=== PATIENT | male | born 1950 | race Caucasian/White ===

== ENCOUNTER 2018-07-07 09:20 | Inpatient (IN) ==
--- NOTE | 2018-06-23 14:26 | PAT Medication Instructions ---
Medication Instructions Date of Service June 23, 2018 Home Medications atenolol 12.5 mg PO QAM lactobacillus combination no.4 3,000 mmu cells PO QAM multivitamin 1 tab PO QAM naproxen 500 mg PO BID PRN omeprazole magnesium [Prilosec OTC] 20 mg PO QAM rosuvastatin [Crestor] 10 mg PO QAM ASK your surgeon for instructions naproxen 500 mg PO BID PRN DO NOT take the morning of surgery lactobacillus combination no.4 3,000 mmu cells PO QAM multivitamin 1 tab PO QAM Take morning of surgery With a small sip of water, OTHERWISE NOTHING TO EAT OR DRINK AFTER MIDNIGHT: atenolol 12.5 mg PO QAM omeprazole magnesium [Prilosec OTC] 20 mg PO QAM rosuvastatin [Crestor] 10 mg PO QAM Other Notes If you have any questions please call us at [phone] or [phone] or [phone] or [phone]
--- NOTE | 2018-06-24 10:47 | Anesthesiology Consultation ---
Date of Service June 24, 2018 Assessment & Plan (1) Encounter for pre-operative examination: - PCP: 06/20/18: "Blood pressure well controlled. "Medically acceptable risk to proceed with planned robotic prostatectomy." Chart Review Chart Review: Acceptable Risk for Surgery and Patient seen in Pre Admission Testing Teaching & Discussion Pre-Anesthesia Teaching/Discussion Notes: Instructed NPO after midnight before surgery,except medications with 15 cc of water. Medication instructions provided according to the PAT guidelines. History Surgery Operation Date: 07/07/18 07:30 Proposed Procedures p Laparoscopic Robot Assisted Radical Retropubic Prostatectomy, Possible Open, Possible Pelvic Lymph Node Dissection, Possible Suprapubic Tube Placement - Xu Dixon MD Height/Weight Height: 5 ft 10 in Weight: 98.7 kg Allergies Allergy/AdvReac Type Severity Reaction Status Date / Time simvastatin [From Zocor] Allergy Muscle Pain Verified 06/21/18 13:14 Medications Home Medications Medication Instructions Recorded Confirmed Last Taken atenolol 12.5 mg PO QAM 06/21/18 06/21/18 Unknown lactobacillus combination no.4 3,000 mmu cells PO QAM 06/21/18 06/21/18 Unknown [Probiotic] multivitamin 1 tab PO QAM 06/21/18 06/21/18 Unknown naproxen 500 mg PO BID PRN 06/21/18 06/21/18 Unknown omeprazole magnesium [Prilosec OTC] 20 mg PO QAM 06/21/18 06/21/18 Unknown rosuvastatin [Crestor] 10 mg PO QAM 06/21/18 06/21/18 Unknown Past Medical History Medical History BPH (benign prostatic hyperplasia) GERD (gastroesophageal reflux disease) CONTROLLED Hyperlipidemia PSVT (paroxysmal supraventricular tachycardia) EPISODE 2000; NO ISSUES SINCE BETA YOSEF ADDITION Past Family History Family History Brother Family history of diabetes mellitus Mother Family history of diabetes mellitus Uncle Family history of diabetes mellitus Past Surgical History Surgical History History of colonoscopy Hx of appendectomy Hx of hemorrhoidectomy X2 Past Anesthesia History No Hx of Anesthesia Complications and No Family Hx of Anesthesia Complications History of PONV No Motion Sickness Screening History of Motion Sickness: No Social History Smoking Status: Never smoker Do You Dip or Chew Tobacco: No Hx Alcohol Use: No Hx Substance Use: No Exercise / Class Metabolic Activity II 4-5 Yardwork/Stairs/Walk up hill Review of Systems Patient denies chest pain, shortness of breath, dyspnea on exertion, cough, wheezing, palpitations. Physical Exam Vital Signs VITALS BP 122/77 P 67 TEMP 97.4 SP02 97%RA RESP 16 PHYSICAL Full neck and c-spine range of motion. Full TMJ range of motion. TMD 4 finger breaths Mallampati Score 1 Dentition: intact, implant on upper front Lungs: clear throughout to auscultation Cardiac: regular rate and rhythm, no murmurs noted Spine: normal Carotid arteries: negative bruit Extremities: no edema Testing Electrocardiogram Date: 06/20/18 Findings: + NSR @ (62) Chest X-Ray Date: 06/20/18 Findings: + NAD Laboratory Results Blood Type A Positive 06/24/18 11:01 Antibody Screen NEGATIVE 06/24/18 11:01 Urine Color Yellow 06/24/18 Unknown Urine Appearance Clear (Clear) 06/24/18 Unknown Urine pH 5.0 (4.5-7.5) 06/24/18 Unknown Ur Specific [place] 1.023 (1.000-1.030) 06/24/18 Unknown Urine Protein Negative (Negative) 06/24/18 Unknown Urine Glucose (UA) Negative (Negative) 06/24/18 Unknown Urine Ketones Negative (Negative) 06/24/18 Unknown Urine Nitrite Negative (Negative) 06/24/18 Unknown Ur Leukocyte Esterase Negative (Negative) 06/24/18 Unknown 06/20/18 WBC 6.1 H/H 13.9/41.1 PLATELETS 118 SODIUM 140 POTASSIUM 4.2 CHLORIDE 108 CO2 24 BUN 26 CREATININE 1.0 GLUCOSE 88
[2018-06-24 11:46] LABS: Appearance Urine Clear (Clear); Bilirubin Urine Negative (Negative); Blood Urine Negative (Negative); Color Urine Yellow; Glucose Urine UA Negative (Negative); Ketones Urine Negative (Negative); Leukocyte Esterase Urine Negative (Negative); Nitrite Urine Negative (Negative); Protein Urine Negative (Negative); Specific Gravity Urine 1.023 (1.000-1.030); Urobilinogen Urine Negative (Negative)
[~2018-07-07 09:20] MED LIST: ACETAMINOPHEN 1000 MG/100 ML IV IV SCH; CEFAZOLIN 2000MG 2,000 MG/15 ML SYR IV SCH; HEPARIN SOD 5,000 UNIT/0.5 ML VIAL SQ SCH; LR 15ML/HR IV SCH; LR 500ML BOLUS IV SCH
--- OUTSIDE RECORDS SUMMARY | 2018-07-07 09:24 | External Medical Summary | Continuity of Care Document ---
:1950 Author Name Lester León, Provider Address Unavailable Unavailable , Care Team Providers Name Role Phone Xu Dixon M.D., I. Unavailable [email or web address] Problems High cholesterol (272.0) (E78.00) Prostate cancer (185) (C61) Elevated PSA (790.93) (R97.20) Allergies and Adverse Reactions No Known Drug Allergies (Allergy) Medications Atenolol TABS Refills: 0 Crestor TABS Refills: 0 PriLOSEC OTC TBEC Refills: 0 Aspir-Low 81 MG Oral Tablet Delayed Release Refills: 0 Probiotic CAPS Refills: 0 Multivitamins CAPS Refills: 0 Sulfamethoxazole-Trimethoprim 800-160 MG Oral Tablet; TAKE 1 TABLET TWICE DAILY STARTING DAY PRIOR TO THE BIOPSY Mau Dixon I. Start: 08-Feb-2018 Quantity: 6 Refills: 0 Procedures History of Appendectomy Status: Complete d History of Hemorrhoidectomy Status: Comp leted Immunizations Immunizations not documented Family History Mother Family history of diabetes mellitus (V18.0) (Z83.3) Status: Active Family history of malignant neoplasm of brain (V16.8) (Z80.8 ) Status: Active Brother Family history of diabetes mellitus (V18.0) (Z83.3) Status: Active natural daughter Family history of kidney stones (V18.69) (Z84.1) Status: Act carmela Social History - Smoking Status Never smoker Plan of Treatment Planned Encounters Appointment; Xu Dixon M.D. Start: 27-Jul-2018 13:45 R equest Planned Observations Planned Goals not documented Results Urine Culture 24-Jun-2018 0:00 URINE CULTURE CATH ORDERED P ROCEDURE : Urine Culture; Speciment : Urine,Clean Catch Urine Culture : No growth - less than 1,000 colonies/mL. Encounters Appointment; Xu Dixon M.D. 07-Jul-2018 8:00 Encounter Diagnosis: Problem not documented Appointment; Velma Branch CRNP 07-Jul-2018 8:00 Encounter Diagnosis: Problem not documented Appointment; Xu Dixon M.D. 15-Jun-2018 11:45 Encounter Diagnosis: Problem not documented Appointment; Xu Dixon M.D. 18-Apr-2018 11:10 Encounter Diagnosis: Problem not documented Appointment; Xu Dixon M.D. 06-Apr-2018 12:45 Encounter Diagnosis: Problem not documented Appointment; Urology, US probe only 06-Apr-2018 12:45 Encounter Diagnosis: Problem not documented Appointment; Urology, Room 8 06-Apr-2018 12:40 Encounter Diagnosis: Problem not documented Appointment; Xu Dixon M.D. 08-Feb-2018 10:50 Encounter Diagnosis: Problem not documented Appointment; Xu Dixon M.D. 27-Jul-2018 13:45 Encounter Diagnosis: Problem not documented
--- NOTE | 2018-07-07 11:01 | History & Physical Bridge Note ---
Date of Service July 07, 2018 History & Physical Bridge Note I have examined the patient, reviewed the History & Physical and in the interval since the performance of the History & Physical I have noted the following changes of clinical significance: no changes noted
[2018-07-07] MEDS ORDERED: ePHEDrine sulfate 50 MG/ML AMP IV PRN (11:21)
[2018-07-07] MEDS ORDERED: fentaNYL citrate 100 MCG/2 ML VIAL IV PRN (11:21)
[2018-07-07] MEDS ORDERED: PROMETHAZINE HCL 12.5 MG in SODIUM CHLORIDE 0.9% 50 ML IV PRN (11:21)
[2018-07-07] MEDS ORDERED: ONDANSETRON INJ 2 MG/ML 2 ML VIAL IV PRN ×2 (11:21→18:36)
[2018-07-07] MEDS ORDERED: ATROPINE SULFATE 0.1 MG/ML 10ML SYR IV PRN (11:21)
[2018-07-07] MEDS ORDERED: HYDROmorphone INJ 2 MG/ML SYR/VIAL IV PRN (11:21)
[2018-07-07] MEDS ORDERED: DEXAMETHASONE SOD INJ 4 MG/ML VIAL IV PRN (11:21)
[2018-07-07] MEDS ORDERED: LIDOCAINE HCL 2% 2 ML VIAL/AMP(20MG/ML) INFIL ONE (11:50)
[2018-07-07] MEDS ORDERED: GLYCOPYRROLATE 0.2 MG/ML VIAL ONE (11:50)
[2018-07-07] MEDS ORDERED: fentaNYL citrate 100 MCG/2 ML VIAL ONE ×2 (11:50)
[2018-07-07] MEDS ORDERED: ePHEDrine sulfate 50 MG/ML AMP ONE (11:50)
[2018-07-07] MEDS ORDERED: PROPOFOL IV EMULSION 10 MG/ML 20 ML VIAL IV ONE (11:50)
[2018-07-07] MEDS ORDERED: NEOSTIGMINE METHYLSULFATE 5 MG/5 ML SYR ONE (11:50)
[2018-07-07] MEDS ORDERED: PHENYLEPHRINE HCL 10 MG/ML VIAL ONE (11:50)
[2018-07-07] MEDS ORDERED: DEXAMETHASONE SOD INJ 4 MG/ML VIAL ONE (11:50)
[2018-07-07] MEDS ORDERED: MIDAZOLAM HCL 1 MG/ML 2ML VIAL ONE (11:50)
[2018-07-07] MEDS ORDERED: ONDANSETRON INJ 2 MG/ML 2 ML VIAL ONE (11:50)
[2018-07-07] MEDS ORDERED: SUCCINYLCHOLINE CHLORIDE 20 MG/ML 10 ML VIAL ONE (11:50)
[2018-07-07] MEDS ORDERED: BUPIVACAINE 0.5 % 5 MG/1 ML MPF 30ML VIAL ONE (13:22)
--- NOTE | 2018-07-07 13:57 | Operative Report ---
Post Operative Report Pre & Post Diagnosis Operation Date: 07/07/18 11:10 Preoperative diagnosis: Clinical T1c Gregg 3+3 prostate cancer. Postoperative diagnosis: Same. Procedure: Robot-assisted laparoscopic radical retropubic prostatectomy with bilateral nerve sparing and suprapubic tube placement. Surgeon: Dr. Xu Dixon. Cell Maker: PORFIRIO Ferro. Anesthesia: General anesthesia with endotracheal intubation plus local port sites. Drains left in place: 18 Afghan silicone urethral Maldonado with 10 cc of sterile water in the balloon, 16 Afghan silicone suprapubic tube with 10 cc of sterile water in the balloon, #10 SANDY drain in the left lower quadrant. Specimen sent to pathology: Prostate plus seminal vesicles, periprosthetic fat. Estimated blood loss: 200 cc. Findings: Watertight anastomosis and bilateral nerve sparing dissection undertaken. Excellent hemostasis in the pelvis and no evidence of rectal injury. Procedure Operation Date: 07/07/18 11:10 Brief history: Patient is a 68-year-old male with a new diagnosis of Gregg 3+3 adenocarcinoma the prostate on office biopsy for an elevated PSA of 8.7. After discussion of risks and benefits of various forms of intervention is decided upon robotic prostatectomy manage his disease. Seen his preoperative staging lymph node dissection is not planned. Patient is decided he wishes to proceed with suprapubic tube placement today as discussed with him and his preoperatively. Intravenous Ancef is provided for antibiotic coverage as well as Tylenol for postoperative analgesia. SCDs used for DVT prophylaxis as well as subcutaneous heparin. Please see H&P for further details. Procedure: Patient was properly identified and brought into the operative suite after identification of appropriate consent of the chart. General anesthesia with endotracheal ablation was initiated and patient was prepped and draped in standard fashion for this procedure. Full timeout procedure was followed. All port sites were anesthetized with local prior to incision. A transverse suprapubic incision was made brought down through the subcutaneous tissues with a 0 degree laparoscope and a visual obturator until the abdomen was entered. And was insufflated to 15 mmHg and surveyed. Ports were placed for a fourth arm robotic template including 2 left-sided 7 mm ports, a right-sided 7 mm robotic port and a 12 and 5 mm assistant hvac mechanic port. Patient was placed in Trendelenburg and robot was brought in and docked. 0 degree lens was used to drop the bladder down to the level of the pubic bone and the prostate was defatted. Tissue that was removed was sent as periprostatic fat. Patient was noted to have an accessory cavernosal artery on the right-hand side this was preserved over the course of his dissection and noted to be intact at the end of the case. Endopelvic fascia was skeletonized and then sharply entered on both sides. Patient was noted to have sustained oozing from small blood vessels over the course of most of the dissection. Lateral dissection was taken down down to the apex of the prostate and the dorsal venous complex was skeletonized. 0 Vicryl suture on a CT1 needle was used to control this in a [id number] fashion. Care was taken to avoid entrapping the patient's accessory artery. Nerve sparing dissection was then initiated at this time by defining the lateral aspect of the prostate and the neurovascular bundles. 30 degree down lens was placed in the bladder neck was placed on traction using the fourth arm. Bladder neck dissection was carried down to the level of the Maldonado catheter which was then used with cephalad traction to allow access to the posterior bladder neck. A continent bladder neck was appreciated at the end of the case. This was divided and dropped in the midline until the vas deferens and seminal vesicles were encountered. Due to a large prostate size these were quite deep within the pelvis and lateral dissections had to be completed prior to completion of the seminal vesicle and vas dissection. Cold Weck clips were used to control the prostatic pedicles. Bipolar cautery was also used as necessary for isolated vessels. Patient was noted to have significant lateral extension of his prostate due to a large prostate volume filling the pelvis. Oozing from small vessels at the bladder neck was also noted. However, using a side to side dissection, progress was made until the seminal vesicles and vas were able to be completely dissected free. Cold scissors were used to complete the nerve sparing dissection at this time with the majority of the dissection being taken out in a blunt fashion. After the posterior dissection was complete attention was turned to the dorsal venous bundle which was divided using hot scissors up to the level of the apex of the prostate. Urethra was skeletonized and nerve sparing dissection was completed. Patient was noted to have excellent urethral length. Urethra was then divided followed by division of the rectourethralis fibers. Prostate was removed from the confines of the pelvis and placed within an Endo Catch bag for retrieval at the end of the case. Excellent hemostasis was appreciated with the pelvic cavity. The rectum was insufflated under saline irrigation and noted to be free of any injuries. FloSeal tissue sealant was then placed over the bed of the prostate gland. Using a double-armed V lock suture a circumferential running anastomosis was performed between a lengthy urethra and a continent bladder neck. Maldonado catheter was noted to preferentially enter the bladder wall the closure was jaylan ng performed. After completion of the closure 10 cc of sterile water replaced with an 18 Afghan silicone catheter the bladder was tested with greater than 120 cc of sterile irrigant and noted to be watertight. The remainder of the FloSeal tissue sealant was placed on either side of the anastomosis. Bladder was then distended to 150 cc of sterile saline and a small suprapubic incision was made. Using a trocar catheter kit a suprapubic tube was placed under direct visualization into the anterior bladder wall. Balloon to the urethral catheter was deflated to avoid injury and brought back into the urethra prior to placement of the suprapubic trocar. A 16 Afghan silicone catheter was placed via the suprapubic kit and 10 cc of sterile water were placed within the point. Urethral catheter was returned to the bladder with an inflated balloon and irrigation via the suprapubic tube drained freely through the urethral catheter. Fourth arm was removed and a #10 SANDY drain was brought in via the fourth arm port. This was placed within the confines of the pelvis while avoiding placing it directly over the anastomosis. Robot was de-docked and removed and the camera was brought in through the assistant hvac mechanic 12 mm port. String to the Endo Catch bag was brought up through the supraumbilical incision and ports were removed. Supraumbilical incision was extended laterally to allow for easy rem oval of the specimen bag. Fascia at this incision was closed in a running fashion using an 0 Vicryl suture on a UR 5 needle. Suprapubic tube #10 SANDY drain was secured in place using 2-0 silk suture. 4-0 Monocryl was used in a subcuticular fashion along with Dermabond to close the remaining incisions. Anesthesia was reversed and patient was transferred to the recovery room in stable condition. Follow-up CARE: Patient will be admitted to the floor for standard postoperative management. Surgeon Xu Dixon MD Cell Maker PORFIRIO Castellanos Estimated Blood Loss 200 Findings Consistent with Post-Op Diagnosis Specimens Prostate plus seminal vesicles, periprostatic fat. Description of Procedure Robot-assisted laparoscopic radical retropubic prostatectomy, bilateral nerve sparing with suprapubic tube placement I attest to the content of the Intraoperative Record and any orders documented therein. Any exceptions are noted below.
[2018-07-07] MEDS ORDERED: SURGICEL ABSORB HEMOSTAT 2IN X 14IN TOP ONE (15:16)
[2018-07-07] MEDS ORDERED: FLOSEAL HEMOSTATIC MATRIX 10ML TOP ONE (15:16)
[2018-07-07] MEDS ORDERED: ROCURONIUM BROMIDE 10 MG/ML 5 ML VIAL ONE (16:37)
[2018-07-07] MEDS ORDERED: HYDROmorphone INJ 2 MG/ML SYR/VIAL ONE (16:46)
--- NOTE | 2018-07-07 17:53 | Anesthesiology Progress Note ---
Date of Service July 07, 2018 Anesthesia Post Procedure Vital Signs Vital Signs: Temp Pulse Resp BP Pulse Ox 07/07/18 17:30 59 L 14 128/57 L 100 07/07/18 17:20 53 L 17 114/57 L 98 07/07/18 17:11 36.1 C L 98 H 16 101/64 98 Transfer of Care Handoff Completed per policy Notes Mental Status: alert / awake / arousable Patient Amnestic to Procedure: Yes Nausea / Vomiting: adequately controlled Pain: adequately controlled Airway Patency, RR, SpO2: stable & adequate BP & HR: stable & adequate Hydration State: stable & adequate Anesthetic Complications: no major complications apparent
[2018-07-07 18:03] LABS: Hematocrit (blood only) 39.6 % (42-52); Hemoglobin 14.5 g/dL (14.0-18.0); Mean Corpuscular Hgb Conc 36.6 g/dL (32-36); Mean Corpuscular Volume 83.9 fL (80-100); Mean Platelet Volume 12.3 fL (7.4-10.4); Platelet Count 130 K/uL (130-400); RDW Coefficient of Variation 12.5 % (11.5-14.5); RDW Standard Deviation 38.1 fL (36.4-46.3); Red Blood Count 4.72 M/uL (4.7-6.1); White Blood Count 11.79 K/uL (4.8-10.8)
[2018-07-07 18:15] LABS: BUN Creatinine Ratio 17.1 (10-20); Calcium 8.4 mg/dl (8.5-10.1); Creatinine Clr Calc Pharmacy 63.3 ml/min; Est GFR (African American) 65.3; Est GFR (Non-African American) 56.3; Potassium 3.9 mmol/L (3.5-5.1)
[2018-07-07] MEDS ORDERED: OXYCODONE HCL IR 5 MG TAB (IMMEDIATE RELEASE) PO PRN ×2 (18:36)
[2018-07-07] MEDS ORDERED: MoRPHine SULFATE 10 MG/ML CARP/VIAL IV PRN (18:36)
[2018-07-07 18:40] LABS: Basophils # (auto) 0.01 K/uL (0-0.2); Basophils % (auto) 0.1 %; Eosinophils # (auto) 0.01 K/uL (0-0.5); Eosinophils % (auto) 0.1 %; Immature Granulocytes # (auto) 0.03 K/uL (0.00-0.02); Immature Granulocytes % (auto) 0.3 %; Lymphocytes # (auto) 0.76 K/uL (1.2-3.4); Lymphocytes % (auto) 6.4 %; Monocytes # (auto) 0.18 K/uL (0.11-0.59); Monocytes % (auto) 1.5 %; Neutrophils % (auto) 91.6 %; RBC Morphology Unremarkable
[2018-07-07] MEDS: LACTATED RINGER'S 1,000 ML IV SCH (20:13)
[2018-07-07 20:23] LABS: Prothrombin Time 10.5 Seconds (9.0-12.0)
[2018-07-07] MEDS: DOCUSATE SODIUM 100 MG CAP PO SCH (21:14)
[2018-07-07] MEDS: FAMOTIDINE 20 MG in SYRINGE 3 ML IV SCH (21:15)
[2018-07-07] MEDS: CEFAZOLIN 2000MG 2,000 MG/15 ML SYR IV SCH (22:29)
[2018-07-07] MEDS: HEPARIN SOD 5,000 UNIT/0.5 ML VIAL SQ SCH (22:38)
[2018-07-08] MEDS: CEFAZOLIN 2000MG 2,000 MG/15 ML SYR IV SCH ×2 (05:48→14:40)
[2018-07-08] MEDS: LACTATED RINGER'S 1,000 ML IV SCH (05:48)
[2018-07-08 06:34] LABS: Hematocrit (blood only) 35.4 % (42-52); Hemoglobin 12.7 g/dL (14.0-18.0); Immature Granulocytes # (auto) 0.03 K/uL (0.00-0.02); Immature Granulocytes % (auto) 0.3 %; Lymphocytes # (auto) 0.87 K/uL (1.2-3.4); Lymphocytes % (auto) 7.3 %; Mean Corpuscular Hgb Conc 35.9 g/dL (32-36); Mean Corpuscular Volume 83.5 fL (80-100); Mean Platelet Volume 12.5 fL (7.4-10.4); Monocytes # (auto) 1.06 K/uL (0.11-0.59); Monocytes % (auto) 8.9 %; Neutrophils # (auto) 9.98 K/uL (1.4-6.5); Neutrophils % (auto) 83.5 %; Platelet Count 131 K/uL (130-400); RDW Coefficient of Variation 12.6 % (11.5-14.5); RDW Standard Deviation 38.4 fL (36.4-46.3); Red Blood Count 4.24 M/uL (4.7-6.1); White Blood Count 11.94 K/uL (4.8-10.8)
[2018-07-08 07:07] LABS: BUN Creatinine Ratio 18.9 (10-20); Creatinine Clr Calc Pharmacy 75.7 ml/min; Est GFR (African American) 81.1; Potassium 4.1 mmol/L (3.5-5.1)
--- NOTE | 2018-07-08 08:17 | Urology Progress Note ---
Date of Service July 08, 2018 Assessment & Plan (1) Prostate cancer: A/P 68 yo male POD#1 s/p RALRP, SPT placement. Doing well. Increase diet and activity today. Wishes to keep SPT - order for bay removal provided. Monitor SANDY output. HTIVF If does well DC SANDY and DC home later today. Intraop and expected postop course reviewed. Patient vocalizes understanding of the treatment plan. Subjective 68 yo male POD#1 s/p RALRP, SPT placement. He was OOBTC this AM, c/o expected pelvic pressure. Has only received Tylenol IV for pain. + hungry, taking clears well. No f/c/n/v. Intraop findings reviewed, some leakage around SPT. Labs reviewed - within expected postop limits. Review of Systems Constitutional: no fever and no chills Eyes: no diplopia Ear, Nose, Mouth, Throat: no ear trauma Respiratory: no hemoptysis Cardiovascular: no chest pain Gastrointestinal: + abdominal pain; no nausea and no vomiting Integumentary: no acne and no boil Neurologic: no paralysis and no numbness Psychiatric: no hopelessness Endocrine: + fatigue Hematologic / Lymphatic: no easy bleeding Physical Exam Constitutional: WD/WN, vitals as above Eyes: eyes not dysmorphic Neck: trachea midline; no anterior neck swelling Respiratory: no respiratory distress and does not use accessory muscles Cardiovascular: Vessels: radial pulses present Gastrointestinal (Abdomen): Inspection/Auscultation: abdomen not distended Percussion/Palpation: abdomen soft; abdomen nontender inc c/d/i with Dermabond, SPT c/d/i, some serosang leakage Skin: normal turgor Neurologic: awake; not obtunded Psychiatric: Orientation: oriented x 3 Genitourinary: no penis abnormality Lymphatic: no lymphadenopathy Results & Data Vital Signs (Past 12 Hours) Vital Signs Temp Pulse Pulse Pulse Resp BP Pulse Ox 07/08/18 08:00 36.8 C 72 18 132/68 95 07/08/18 03:19 36.6 C 81 14 114/66 96 07/07/18 22:56 36.4 C L 70 16 120/69 94 07/07/18 21:15 36.4 C L 70 16 119/71 96 07/07/18 20:29 36.4 C L 77 16 120/71 98 Laboratory Results Laboratory Results - last 48 hr 07/07/18 07/07/18 07/07/18 17:47 17:47 20:05 WBC 11.79 H RBC 4.72 Hgb 14.5 Hct 39.6 L MCV 83.9 MCH 30.7 MCHC 36.6 H RDW Std Deviation 38.1 RDW Coeff of Latanya 12.5 Plt Count 130 MPV 12.3 H Immature Gran % (Auto) 0.3 Neut % (Auto) 91.6 Lymph % (Auto) 6.4 Dupage % (Auto) 1.5 Eos % (Auto) 0.1 Baso % (Auto) 0.1 Immature Gran # (Auto) 0.03 H Neut # (Auto) 10.80 H Lymph # (Auto) 0.76 L Dupage # (Auto) 0.18 Eos # (Auto) 0.01 Baso # (Auto) 0.01 RBC Morphology Unremarkable PT 10.5 INR 1.0 Sodium 137 Potassium 3.9 Chloride 104 Carbon Dioxide 29 Anion Gap 4.0 BUN 22 H Creatinine 1.28 Est Cr Clr Drug Dosing 63.3 Est GFR ( Amer) 65.3 Est GFR (Non-Af Amer) 56.3 BUN/Creatinine Ratio 17.1 Glucose 136 H Calcium 8.4 L 07/08/18 07/08/18 06:00 06:00 WBC 11.94 H RBC 4.24 L Hgb 12.7 L Hct 35.4 L MCV 83.5 MCH 30.0 MCHC 35.9 RDW Std Deviation 38.4 RDW Coeff of Latanya 12.6 Plt Count 131 MPV 12.5 H Immature Gran % (Auto) 0.3 Neut % (Auto) 83.5 Lymph % (Auto) 7.3 Dupage % (Auto) 8.9 Eos % (Auto) 0.0 Baso % (Auto) 0.0 Immature Gran # (Auto) 0.03 H Neut # (Auto) 9.98 H Lymph # (Auto) 0.87 L Dupage # (Auto) 1.06 H Eos # (Auto) 0.00 Baso # (Auto) 0.00 RBC Morphology PT INR Sodium 137 Potassium 4.1 Chloride 106 Carbon Dioxide 26 Anion Gap 5.0 BUN 20 H Creatinine 1.07 Est Cr Clr Drug Dosing 75.7 Est GFR ( Amer) 81.1 Est GFR (Non-Af Amer) 70.0 BUN/Creatinine Ratio 18.9 Glucose 125 H Calcium 8.0 L
[2018-07-08] MEDS: ROSUVASTATIN CALCIUM 10 MG TAB PO SCH (09:18)
[2018-07-08] MEDS: ATENOLOL 25 MG TABLET PO SCH (09:18)
[2018-07-08] MEDS: MULTIVITAMIN TAB PO SCH (09:18)
[2018-07-08] MEDS: DOCUSATE SODIUM 100 MG CAP PO SCH ×2 (09:19→20:27)
[2018-07-08] MEDS: LACTOBACILLUS ACIDOPHILUS (FLORANEX) TAB PO SCH (09:19)
[2018-07-08] MEDS: PANTOprazole 40 MG TAB PO SCH (09:19)
[2018-07-08] MEDS: HEPARIN SOD 5,000 UNIT/0.5 ML VIAL SQ SCH ×2 (09:23→20:29)
[2018-07-08] MEDS: FAMOTIDINE 20 MG in SYRINGE 3 ML IV SCH ×2 (10:31→20:27)
[2018-07-08] MEDS: ACETAMINOPHEN 1,000 MG/100 ML VIAL IV PRN (23:25)
[2018-07-09 07:05] LABS: Hematocrit (blood only) 37.6 % (42-52); Mean Corpuscular Hgb Conc 34.6 g/dL (32-36); Mean Corpuscular Volume 85.6 fL (80-100); RDW Coefficient of Variation 12.7 % (11.5-14.5); RDW Standard Deviation 39.7 fL (36.4-46.3); Red Blood Count 4.39 M/uL (4.7-6.1); White Blood Count 9.64 K/uL (4.8-10.8)
[2018-07-09 07:26] LABS: Mean Platelet Volume 12.8 fL (7.4-10.4); Platelet Count 124 K/uL (130-400)
[2018-07-09 07:27] LABS: Basophils # (auto) 0.01 K/uL (0-0.2); Basophils % (auto) 0.1 %; Eosinophils # (auto) 0.08 K/uL (0-0.5); Eosinophils % (auto) 0.8 %; Immature Granulocytes # (auto) 0.01 K/uL (0.00-0.02); Immature Granulocytes % (auto) 0.1 %; Lymphocytes # (auto) 2.36 K/uL (1.2-3.4); Lymphocytes % (auto) 24.5 %; Monocytes # (auto) 1.03 K/uL (0.11-0.59); Monocytes % (auto) 10.7 %; Neutrophils # (auto) 6.15 K/uL (1.4-6.5); Neutrophils % (auto) 63.8 %; Platelet Estimate Decreased (Normal); RBC Morphology Unremarkable
[2018-07-09 07:47] LABS: BUN Creatinine Ratio 17.1 (10-20); Calcium 8.4 mg/dl (8.5-10.1); Creatinine Clr Calc Pharmacy 73.6 ml/min; Est GFR (African American) 78.4; Est GFR (Non-African American) 67.7; Potassium 3.8 mmol/L (3.5-5.1)
[2018-07-09] MEDS: ATENOLOL 25 MG TABLET PO SCH (07:57)
[2018-07-09] MEDS: DOCUSATE SODIUM 100 MG CAP PO SCH (07:57)
[2018-07-09] MEDS: ROSUVASTATIN CALCIUM 10 MG TAB PO SCH (07:57)
[2018-07-09] MEDS: MULTIVITAMIN TAB PO SCH (07:58)
[2018-07-09] MEDS: PANTOprazole 40 MG TAB PO SCH (07:58)
[2018-07-09] MEDS: LACTOBACILLUS ACIDOPHILUS (FLORANEX) TAB PO SCH (07:58)
[2018-07-09] MEDS: HEPARIN SOD 5,000 UNIT/0.5 ML VIAL SQ SCH (08:01)
[2018-07-09] MEDS: FAMOTIDINE 20 MG in SYRINGE 3 ML IV SCH (08:04)
--- NOTE | 2018-07-09 09:43 | Urology Progress Note ---
Date of Service July 09, 2018 Assessment & Plan (1) Prostate cancer: Postop day 2 status post robotic prostatectomy DC home today Subjective Patient elected to stay overnight He reports that he subjectively improved today He is ambulatory, tolerating a diet, passing flatus Pain is decreased substantially Review of Systems Review of Systems: All systems reviewed & are unremarkable except as noted in HPI & below Physical Exam Physical Exam: Incisions appropriate SP tube draining clear urine, minimal leakage around the SP site Mild scrotal edema, minimal lower extremity edema Results & Data Vital Signs (Past 12 Hours) Vital Signs Temp Pulse Resp BP Pulse Ox 07/09/18 06:58 36.8 C 74 16 109/68 94 07/08/18 22:58 36.9 C 74 16 135/76 94
[2018-07-09] MEDS: ACETAMINOPHEN 1,000 MG/100 ML VIAL IV PRN (13:07)
--- NOTE | 2018-07-26 13:54 | Discharge Summary ---
Date of Service July 26, 2018 Admission HPI Per Admitting Provider 68 yo male with prostate cancer who has chosen robotic prostatectomy to manage his disease. Please see H&P for further details. Admission Exam (Per Admitting) Constitutional WD/WN, vitals as above Eyes eyes not dysmorphic Neck trachea midline; no anterior neck swelling Respiratory no respiratory distress and does not use accessory muscles Cardiovascular Vessels: radial pulses present Gastrointestinal (Abdomen) Inspection/Auscultation: abdomen not distended Percussion/Palpation: abdomen soft; abdomen nontender Skin normal turgor Neurologic awake; not obtunded Psychiatric Orientation: oriented x 3 Genitourinary no penis abnormality Lymphatic no lymphadenopathy Discharge Data Procedures Performed Operation Date: 07/07/18 11:10 Actual Procedures p Laparoscopic Robotic Assisted Radical Retropubic Prostatectomy, Suprapubic Catheter Placement(Not Applicable) - Xu Dixon MD Hospital Course (1) Prostate cancer: Underwent prostatectomy as planned. See OP note for further details. Postop patient was admitted to the floor. Diet and activity were advanced and by POD#2 patient was ambulatory, tolerating a regular diet and comfortable on oral medications. Consider stable for DC home at that time. See progress notes for further details. Postop day 2 status post robotic prostatectomy DC home today Discharge Instructions See DC instruction sheet and Rx for further details.
== END 2018-07-09 14:47 | disposition home or self-care (01) | DRG 708 ==
LOC: ASU 09:20 → 3W 16:53
DX: R97.20 Elevated prostate specific antigen [PSA]; E78.00 Pure hypercholesterolemia, unspecified; Z84.1 Family history of disorders of kidney and ureter; Z83.3 Family history of diabetes mellitus; Z79.82 Long term (current) use of aspirin; Z80.8 Family history of malignant neoplasm of other organs or systems; C61 Malignant neoplasm of prostate